=== PATIENT | male | born 1965 | race Caucasian/White ===

== ENCOUNTER 2016-07-06 11:48 | Emergency (ER) | payer BC ==
[2016-07-06 12:17] VITALS: BP 115/85; PULSE 101; TEMP 98.2; BMI 29.2
[2016-07-06] MEDS ORDERED: DEXAMETHASONE 4 MG TABLET (FP) PO STA (13:17)
--- NOTE | 2016-07-06 13:22 | PDOC ---
History of Present Illness - General Chief Complaint: Cold Symptoms Stated Complaint: SWOLLEN GLANDS, THROAT PAIN Time Seen by Provider: 07/06/16 12:51 History Source: Patient Exam Limitations: No Limitations - History of Present Illness Initial Comments: 07/06/16 13:18 Pt with swelling to right jaw started 2 days ago, pain with eating . Denies sore throat denies dental trauma or pain, states painful to the gum line. Pt currently on Levaquin for URI (given at Urgent Care last week). Pt denies headache or ear pain. Severity: mild Past History - Past Medical History Allergies/Adverse Reactions: Allergies Allergy/AdvReac Type Severity Reaction Status Date / Time No Known Allergies Allergy Verified 07/06/16 12:13 Home Medications: Ambulatory Orders Levofloxacin [Levaquin] 500 mg PO DAILY 07/06/16 Metformin HCl [Glucophage] 1,000 mg PO DAILY 07/06/16 Omeprazole 20 mg PO DAILY 07/06/16 Rosuvastatin Calcium [Crestor] 40 mg PO DAILY 07/06/16 Tamsulosin HCl [Flomax] 0.4 mg PO DAILY 07/06/16 Diabetes: Yes GI Disorders: Yes (GERD) Hypercholesterolemia: Yes Other medical history: "PROSTATE PROBLEMS" - Psycho/Social/Smoking Cessation Hx Suicidal Ideation: No Smoking History: Never smoked Review of Systems - Review of Systems Able to Perform ROS?: Yes Is the patient limited Maltese proficient: No Constitutional: No: Symptoms Reported HEENTM: Yes: See HPI *Physical Exam - Vital Signs Last Vital Signs Temp Pulse Resp BP Pulse Ox 98.2 F 101 H 17 115/85 96 07/06/16 12:13 07/06/16 12:13 07/06/16 12:13 07/06/16 12:13 07/06/16 12:13 - Physical Exam General Appearance: Yes: Nourished, Appropriately Dressed HEENT: positive: EOMI, ALICJA, TMs Normal, Pharynx Normal, Pharyngeal Erythema, Other (palpable swelling to submandibular area right side, mildly tender to palpation, tender with chewing) Neck: negative: Tender, Lymphadenopathy (L) Respiratory/Chest: positive: Lungs Clear, Normal Breath Sounds Cardiovascular: positive: Regular Rhythm, Regular Rate Gastrointestinal/Abdominal: positive: Normal Bowel Sounds, Soft Musculoskeletal: positive: Normal Inspection Extremity: positive: Normal Capillary Refill, Normal Inspection, Normal Range of Motion Integumentary: positive: Normal Color, Dry, Warm Neurologic: positive: Fully Oriented, Alert, Normal Mood/Affect, Normal Response , Motor Strength 5/5 Medical Decision Making - Medical Decision Making 07/06/16 13:20 cc: swelling pain to submandibular area right side, neg cervical lymphadenopathy will treat for salivary gland stone discussed treatment with patient who agrees with plan of care pt to continue the Levaquin, follow with ENT *DC/Admit/Observation/Transfer Diagnosis at time of Disposition: Salivary duct calculi - Discharge Dispostion Disposition: HOME Condition at time of disposition: Good - Referrals Referrals: Sanju Paez MD [Primary Care Provider] - Kade Mckay MD [Staff Physician] - - Patient Instructions Additional Instructions: suck on sour lemon candies frequentyl to help salivate and loosen the stone apply moist warm compresses to the area of swelling 4-5 times a day take motrin 600mg every 6hrs for pain as needed follow with Ear Nose and Throat doctor next week if no improvement continue taking the levaquin you have already started return if any worsening symptoms
[2016-07-06] MEDS ORDERED: DEXAMETHASONE SOD PHOSPHATE 10 MG/1 ML VIAL ONE (13:23)
== END 2016-07-06 13:41 | disposition home or self-care (01) ==
LOC: JERFT 11:48
DX: K11.5 Sialolithiasis (principal); Z79.84 Long term (current) use of oral hypoglycemic drugs; K21.9 Gastro-esophageal reflux disease without esophagitis; E11.9 Type 2 diabetes mellitus without complications; E78.00 Pure hypercholesterolemia, unspecified
CPT/HCPCS: 99281-25

== ENCOUNTER 2017-01-16 11:42 | Emergency (ER) | payer OTHER, BC ==
[2017-01-16 11:47] VITALS: BP 133/75; PULSE 94; TEMP 98.3; BMI 30.9
[2017-01-16] MEDS ORDERED: IBUPROFEN 400 MG TABLET (FP) PO ONE ×2 (12:20→12:21)
--- NOTE | 2017-01-16 12:32 | PDOC ---
History of Present Illness - General Chief Complaint: Pain Stated Complaint: LT SIDE PAIN Time Seen by Provider: 01/16/17 12:02 History Source: Patient - History of Present Illness Timing/Duration: other (this am) Associated Symptoms: denies: shortness of breath Past History - Past Medical History Allergies/Adverse Reactions: Allergies Allergy/AdvReac Type Severity Reaction Status Date / Time No Known Allergies Allergy Verified 01/16/17 11:47 Home Medications: Ambulatory Orders Metformin HCl [Glucophage] 1,000 mg PO DAILY 07/06/16 Omeprazole 20 mg PO DAILY 07/06/16 Rosuvastatin Calcium [Crestor] 40 mg PO DAILY 07/06/16 Tamsulosin HCl [Flomax] 0.4 mg PO DAILY 07/06/16 Diabetes: Yes GI Disorders: Yes (GERD) Hypercholesterolemia: Yes - Psycho/Social/Smoking Cessation Hx Anxiety: No Suicidal Ideation: No Smoking History: Never smoked Hx Alcohol Use: Yes (SOCIAL) Drug/Substance Use Hx: No Substance Use Type: None Review of Systems - Review of Systems Respiratory: No: Shortness of Breath Cardiac (ROS): Yes: Chest Pain *Physical Exam - Vital Signs Last Vital Signs Temp Pulse Resp BP Pulse Ox 98.3 F 94 H 18 133/75 98 01/16/17 11:43 01/16/17 11:43 01/16/17 11:43 01/16/17 11:43 01/16/17 11:43 - Physical Exam General Appearance: Yes: Appropriately Dressed. No: Apparent Distress HEENT: positive: Normal Voice Neck: positive: Supple Respiratory/Chest: positive: Chest Tender (to L lower chest in MCL, no obvious contusion, no crrepitus or stepoffs). negative: Respiratory Distress Cardiovascular: positive: Regular Rate, S1, S2 Integumentary: positive: Dry, Warm Neurologic: positive: Fully Oriented, Alert, Normal Mood/Affect ED Treatment Course - RADIOLOGY Radiology Studies Ordered: Category Date Time Status RIBS-LEFT SIDE [RAD] Stat Radiology 01/16/17 12:19 Ordered Medical Decision Making - Medical Decision Making 01/16/17 12:27 51 yo M, no sig hx, here w/ severe pain to chest wall s/p "walking into" a table at work this am. States the bottom of a table leg struck his L chest and have been having pain since. Denies sob. Has not taken anything for pain See exam M/l chest contusion Mechanism not concerning enough to suspect rib fx but given severity of pain, will get rib series -pain control 01/16/17 12:42 XR neg for fx. Pt discharge w/ otc pain meds as needed *DC/Admit/Observation/Transfer Diagnosis at time of Disposition: Chest wall contusion Qualifiers: Encounter type: initial encounter Laterality: left Qualified Code(s): S20.212A - Contusion of left front wall of thorax, initial encounter - Discharge Dispostion Disposition: HOME Condition at time of disposition: Good - Referrals Referrals: Sanju Paez MD [Primary Care Provider] - - Patient Instructions Printed Discharge Instructions: Contusion Additional Instructions: Your XR was negative for a rib fracture. You have a chest wall contusion which will heal on its own. Take motrin as needed for pain - Post Discharge Activity Work/School Note: Back to Work
== END 2017-01-16 12:49 | disposition home or self-care (01) ==
LOC: JERFT 11:42
DX: S20.212A Contusion of left front wall of thorax, initial encounter (principal); W22.01XA Walked into wall, initial encounter; Y93.89 Activity, other specified; Y92.9 Unspecified place or not applicable; E11.9 Type 2 diabetes mellitus without complications; K21.9 Gastro-esophageal reflux disease without esophagitis
CPT/HCPCS: 71101-TC; 99281-25

== ENCOUNTER 2020-05-04 07:30 | Day surgery (SDC) | payer BC ==
[2020-04-26 12:40] VITALS: BMI 30.9
[2020-05-04] MEDS ORDERED: LIDOCAINE HCL/PF 2% SDV 5ML VIAL ONE (07:52)
[2020-05-04] MEDS ORDERED: PROPOFOL 20 ML ONE ×3 (07:52)
[2020-05-04 09:27] VITALS: BP 105/65; PULSE 94; TEMP 98
== END 2020-05-04 09:35 | disposition home or self-care (01) ==
LOC: FASU 07:30
PROVIDERS: ATTEND Internal Medicine Gastroenterology
PROC: 0DBL8ZX Excision of Transverse Colon, Via Natural or Artificial Opening Endoscopic, Diagnostic (ICD-10-PCS; principal; 2020-05-04 08:29)
DX: Z12.11 Encounter for screening for malignant neoplasm of colon (principal); K57.30 Diverticulosis of large intestine without perforation or abscess without bleeding; D12.5 Benign neoplasm of sigmoid colon
CPT/HCPCS: 82962; 88305-TC